=== PATIENT | female | born 1990 | race Caucasian/White ===

== ENCOUNTER 2017-02-12 13:58 | Emergency (ER) | payer MEDICAID ==
--- NOTE | 2017-02-12 15:11 | EDPHY ---
H & P Time Seen by Provider: 02/12/17 14:43 HPI/ROS: CHIEF COMPLAINT: Skin blisters HISTORY OF PRESENT ILLNESS: This is a 27-year-old female presenting to the emergency department complaining of several patches of blisters on her skin, and urinary discomfort. Patient states she went camping a week and half ago 4- 5 days after camping she started noting a small patch on her left ankle of blisters, then noticed a couple of patches of blisters behind her right knee she reports some skin irritation but her concern is a spreading infection. 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 Patient states she does not know she came into contact something while they were camping denies any fever chills. The patient is also reporting 3-5 days of urinary discomfort no nausea vomiting REVIEW OF SYSTEMS: Constitutional: No fever, no chills. Eyes: No discharge. No blurred vision ENT: No sore throat. Cardiovascular: No chest pain, no palpitations. Respiratory: No cough, no shortness of breath. Gastrointestinal: No abdominal pain, no vomiting. Genitourinary: Urinary discomfort Musculoskeletal: No back pain. Skin: Blisters and skin rash left ankle, right popliteal Neurological: No headache. Physical Exam: General Appearance: Alert and no distress. Eyes: Pupils equal and round no injection. Respiratory: Chest is nontender, lungs are clear to auscultation. Cardiac: regular rate and rhythm Gastrointestinal: Abdomen is soft and nontender. Left CVA tenderness on palpation Musculoskeletal: Neck is supple and nontender. Extremities: full range of motion and are nontender. A patch of a vesicles and scabbed noted to left ankle, two patchy areas noted popliteal area positive excoriation noted no vesicles noted to this area Skin: No rashes or lesions. A patch of a vesicles and scabbed noted to left ankle, two patchy areas noted popliteal area positive excoriation noted no vesicles noted to this area Constitutional: Initial Vital Signs Temperature (C) 37.1 C 02/12/17 14:01 Heart Rate 101 H 02/12/17 14:01 Respiratory Rate 18 02/12/17 14:01 Blood Pressure 104/71 02/12/17 14:01 O2 Sat (%) 97 02/12/17 14:01 O2 Delivery Mode Room Air Allergies/Adverse Reactions: cefaclor [From Ceclor] Allergy (Verified 02/12/17 14:00) Home Medications: Medication Instructions Recorded Sulfamethox/Tmp 800/160 mg 1 tab PO BID #14 tab 02/12/17 [Bactrim Ds] Medical Decision Making ED Course/Re-evaluation: Discussed ED plan of care: UA 1630: Discussed urinalysis, and treatment plan. Discharge home--> stable, discussed all discharge instructions Differential Diagnosis: Other differential diagnosis considered but not limited to UTI, shingles, impetigo, eczema, psoriasis and contact dermatitis - Data Points Laboratory Results: 02/12/17 15:18 Urine Color YELLOW Urine Appearance MODERATELY TURBID Urine pH 6.0 (5.0-7.5) Ur Specific [place] 1.008 (1.002-1.030) Urine Protein 1+ H (NEGATIVE) Urine Ketones 1+ H (NEGATIVE) Urine Blood 1+ H (NEGATIVE) Urine Nitrate NEGATIVE (NEGATIVE) Urine Bilirubin NEGATIVE (NEGATIVE) Urine Urobilinogen NEGATIVE EU EU (0.2-1.0) Ur Leukocyte Esterase 3+ H (NEGATIVE) Urine RBC 5-10 /hpf H /hpf (0-3) Urine WBC 50-182 /hpf H /hpf (0-3) Ur Epithelial Cells 1+ /lpf /lpf (NONE-1+) Urine Bacteria 4+ /hpf H /hpf (NONE SEEN) Urine Mucus TRACE /lpf /lpf (NONE-1+) Urine Glucose NEGATIVE (NEGATIVE) Departure - Departure Disposition: Home, Routine, Self-Care Clinical Impression: UTI (urinary tract infection) Qualifiers: Urinary tract infection type: site unspecified Hematuria presence: without hematuria Qualified Code(s): N39.0 - Urinary tract infection, site not specified Contact dermatitis Qualifiers: Contact dermatitis type: unspecified Contact dermatitis trigger: other trigger Qualified Code(s): L25.8 - Unspecified contact dermatitis due to other agents Condition: Good Instructions: Urinary Tract Infection in Women (ED), Contact Dermatitis (ED), Cold Compress or Soak (ED) Additional Instructions: 1. Take all antibiotics as prescribed 2. Use topical ointment hydrocortisone 2.5% apply thin layer to area twice a day x 5-7 days for rash 3. The increased water intake, and also cranberry juice may be beneficial UTI symptoms 4. Things that we can changes woman no bubble baths, a urinate right after sex , change tampons or pads frequently 5. Due to the areas of the rash no [place] water exposure or river water exposure this can increase chances for worsening skin infection 6. You can also take ibuprofen as needed 600 mg every 6-8 hours 7. [facility], if rash is not resolving I would recommend following up with Dermatology Referrals: NONE *PRIMARY CARE P,. [Primary Care Provider] - As per Instructions [facility],. [Clinic] - As per Instructions Prescriptions: Sulfamethox/Tmp 800/160 mg [Bactrim Ds] 1 tab PO BID #14 tab
[2017-02-12 15:33] LABS: COLOR YELLOW; LEUKOCYTE ESTERASE,URINE 3+ (NEGATIVE); NITRITE,URINE NEGATIVE (NEGATIVE)
[2017-02-12 15:40] LABS: BACTERIA 4+ /hpf (NONE SEEN); MUCUS TRACE /lpf (NONE-1+); WBC,URINE 50-182 /hpf (0-3)
[2017-02-12] MEDS ORDERED: SULFAMETHOX/TMP 800/160 MG 1 TAB PO ONE (16:31)
[2017-02-12 16:53] VITALS: BP 118/77; PULSE 70; RESP 14; TEMP 97.9; O2SAT 94
== END 2017-02-12 16:52 | disposition home or self-care (01) ==
DX: L25.8 Unspecified contact dermatitis due to other agents (principal); N39.0 Urinary tract infection, site not specified; B96.20 Unspecified Escherichia coli [E. coli] as the cause of diseases classified elsewhere